=== PATIENT | female | born 1995 | race Caucasian/White ===

== ENCOUNTER 2025-01-04 08:11 | Emergency (ER) | payer BC, OTHER ==
[~2025-01-04] VITALS: Ht 170.2 cm; Wt 100.0 kg
--- NOTE | 2025-01-04 08:52 | Physician Documentation ---
History of Present Illness ~ Chief Complaint: Hip pain Stated Complaint: PELVIC PAIN Time Seen by MD: 08:25 Mode of Arrival: Ambulatory HPI Year old female with a history of ovarian cysts presents with increasing right- sided pelvic pain over the last few months. She states over the last week it has increased in severity. She denies any nausea vomiting diarrhea or fevers. Not currently take medicine for previous ovarian cysts Medication Reconciliation Allergies: Coded Allergies: Penicillins (Verified Allergy, Unknown, 01/04/25) codeine (Verified Allergy, Unknown, 01/04/25) Past Medical History Past Medical History: No Pertinent History Past Surgical History: no surgical history Alcohol Use: Rarely Drug Use: none Lives In: Home Occupation: employed Review of Systems All Other Systems at this time: Reviewed and Negative ROS As stated above in the HPI, otherwise all systems are reviewed and negative. Physical Exam Vital Signs: Temperature: 97.7, Source: Temporal, Heart Rate: 83, Respiratory Rate: 18, BP: 120/74, Pulse Oximetry: 98, Weight: 100.000 Physical Exam General: Alert, no apparent distress. HEENT: PERRL, EOMI, no injection, moist mucous membranes. Neck: Full range of motion. Respiratory: Lungs clear, no respiratory distress. Chest: No accessory muscle use. Cardiovascular: Regular rate and rhythm, no murmurs. Gastrointestinal: Soft, nontender, nondistended. Bowels sounds present. Extremities: Normal range of motion, no deformity. Neurologic: Oriented x4. Psychiatric: Normal mood and affect. Skin: Normal color, warm and dry. No edema, no ecchymosis. Progress Results/Orders Results/Orders Orders - ANDERS MARIE MANAGER RADIO Ultrasound Pelvis W/Orwo Dplx (01/04/25 08:26) Cult Urine + [employer] [address] (01/04/25 10:05) Completed Orders - ANDERS MARIE MANAGER RADIO Ultrasound Pelvis W/Orwo Dplx (01/04/25 08:26) Hcg, Ur Ql (01/04/25 08:56) Cbc/Diff (01/04/25 08:56) BMP (01/04/25 08:56) Lipase (01/04/25 08:56) CMP (01/04/25 08:56) Ketorolac Trometh 30mg/Ml Vial (Toradol (01/04/25 09:20) Ua W/Microscopic, Cult If Ind (01/04/25 09:45) Medications Received in ER Medications (Trade) Dose Ordered Sig/Sofia Route PRN Reason Start Time Stop Time Status Last Admin Dose Admin (Toradol inj. 30mg/ml) 30 mg ONCE ONCE IM 01/04/25 09:20 01/04/25 09:21 DC 01/04/25 09:39 30 MG Vital Signs 01/04/25 01/04/25 01/04/25 08:15 08:30 09:16 Temp 97.7 Pulse 83 77 Resp 18 16 B/P (MAP) 120/74 122/70 (87) Pulse Ox 98 97 O2 Flow Rate 0 Laboratory Tests Test 01/04/25 09:09 01/04/25 09:45 White Blood Count 7.5 Red Blood Count 4.40 Hemoglobin 13.4 Hematocrit 38.6 Mean Corpuscular Volume 87.5 Mean Corpuscular Hemoglobin 30.4 Mean Corpuscular Hemoglobin Concent 34.7 Red Cell Distribution Width 12.7 Platelet Count 198 Mean Platelet Volume 9.2 Neutrophils (%) (Auto) 61.4 Lymphocytes (%) (Auto) 29.6 Monocytes (%) (Auto) 7.3 Eosinophils (%) (Auto) 1.5 Basophils (%) (Auto) 0.2 Neutrophils # (Auto) 4.6 Lymphocytes # (Auto) 2.2 Monocytes # (Auto) 0.5 Eosinophils # (Auto) 0.1 Basophils # (Auto) 0.0 CBC Comment Sodium Level 140 Potassium Level 4.1 Chloride Level 106 Carbon Dioxide Level 28.3 Anion Gap 6 L Blood Urea Nitrogen 8 Creatinine 0.74 Estimated GFR/1.73 m2 > 90 BUN/Creatinine Ratio 10.8 Glucose Level 88 Calcium Level 8.8 Total Bilirubin 0.4 Aspartate Amino Transf (AST/SGOT) 14 Alanine Aminotransferase (ALT/SGPT) 31 Alkaline Phosphatase 140 H Total Protein 7.3 Albumin 3.7 Globulin 3.6 Albumin/Globulin Ratio 1.0 L Lipase 22 Chemistry Comments Urine Specimen Description Cln catch midstream Urine Color Yellow Urine Clarity Cloudy Urine pH 8.5 Urine Specific [place] 1.015 Urine Protein Trace Urine Glucose (UA) Negative Urine Ketones Negative Urine Occult Blood Negative Urine Nitrite Negative Urine Bilirubin Negative Urine Urobilinogen 0.2 Urine Leukocyte Esterase Moderate H Urine RBC 0-2 Urine WBC 5-10 H Urine Squamous Epithelial Cells Moderate Urine Transitional Epithelial Cells Few Urine Bacteria 3+ Urine Mucus None seen Urine Culture Indicated Indicated Volume Urine Centrifuged 10 ml Urine HCG, Qualitative Negative Urine Comment Medical Decision Making Findings Patient's initial concerns were over a possible ovarian cyst there over the ultrasound indicated good flow to both ovaries and no signs of ovarian cyst. Her urinalysis came back positive for a UTI. At this time going to treat her empirically Departure Disposition: HOME / SELF CARE / HOMELESS Impression: Primary Impression: UTI (urinary tract infection) Discharge Instructions: Urinary Tract Infection, Adult, [id number] Referrals: NO PRIMARY CARE PROVIDER (PCP) Prescriptions Sulfamethoxazole/Trimethoprim (Septra Ds Tab) 800 Mg/160 Mg Tablet 1 TAB PO Q12H for 10 Days, #20 TAB Prov: ANDERS MARIE NP 01/04/25 Education Educated: Patient Educated regarding: diagnosis Signature Scribe Signature: pretty Attestation: Scribed for Anders Marie Lunchroom Attendant by Anders Rowley NP . 01/04/25 08:50 ANDERS MARIE NP Jan 04, 2025 08:52
--- NOTE | 2025-01-04 09:17 | RADIOLOGY REPORT ---
CLINICAL HISTORY: ovarian cyst. Right lower quadrant pain. COMPARISON:None TECHNIQUE: Transabdominal grayscale sonographic imaging of the uterus and ovaries was performed, assisted by color Doppler technique. Duplex Doppler ultrasound of both ovaries was also performed with color flow and spectral waveform analysis. FINDINGS: The uterus measures 8.6 x 4.5 x 5.1 cm. There is mildly heterogeneous echogenicity. Endometrial thickness measures 0.3 cm, within normal limits. Right ovary measures 3.2 x 2.8 x 3.0 cm. Arterial and venous blood flow demonstrated. Left ovary measures 3.5 x 1.7 x 2.9 cm. Arterial and venous blood flow demonstrated. IMPRESSION: 1. No sonographic evidence of ovarian torsion. 2. No adnexal mass demonstrated on transabdominal ultrasound examination. 3. Otherwise transabdominal sonographic appearance of the uterus and ovaries.
[2025-01-04 09:23] LABS: MEAN PLATELET VOLUME 9.2 FL (7.4-10.4); RED CELL DISTRIBUTION WIDTH 12.7 % (11.5-14.5)
[2025-01-04] MEDS: ketorolac trometh 30MG/ML vial 30 MG/ML VIAL IM ONE (09:39)
[2025-01-04 09:40] LABS: CREATININE 0.74 MG/DL (0.40-0.90); TOTAL CARBON DIOXIDE 28.3 MMOL/L (24-32); eCRCL 108 ML/MIN; eGFR > 90 ML/MIN
[2025-01-04 09:56] LABS: LEUKOCYTE ESTERASE ,URINE MODERATE (Neg); NITRITES, URINE NEGATIVE (Neg); OCCULT BLOOD,URINE NEGATIVE (Neg)
[2025-01-04 09:59] LABS: UA COLLECTION TYPE CLN CATCH MIDSTREAM
[2025-01-04 10:01] LABS: URINE HCG NEGATIVE (NEG)
[2025-01-04 10:04] LABS: MUCUS STRANDS NONE SEEN /LPF (Neg); SQUAMOUS EPITHELIAL CELL,UR MODERATE /LPF (FEW)
[2025-01-04] MEDS ORDERED: SULF1TAB45 PO (10:23)
[2025-01-04] MEDS: phenazopyridine 100mg tablet PO ONE (10:28)
[2025-01-04 10:29] VITALS: BP 125/72; PULSE 65; RESP 16; TEMP 98.3; O2SAT 98
== END 2025-01-04 10:33 | disposition home or self-care (01) ==
LOC: ER 08:12
DX: N39.0 Urinary tract infection, site not specified (principal); Z88.0 Allergy status to penicillin; Z88.5 Allergy status to narcotic agent
CPT/HCPCS: 36415; 76856; 80053; 81001; 81025; 83690; 85025; 87088; 93976; 96372; 99285; J1885